=== PATIENT | male | born 1950 | race Caucasian/White ===

== ENCOUNTER → 2020-01-08 09:55 | Outpatient (CLI) | payer MEDICARE, BC ==
[2015-05-19 12:01] VITALS: BMI 24.1
[~2020-01-08 09:55] MED LIST: MIRALAX17 GM PO; NORCO 10/325 TA1 TA1 PO; TOBREX3.5 GM LEFT EYE
== END | disposition home or self-care (01) ==
LOC: D.LAB 09:55
PROVIDERS: ATTEND Urology
DX: N40.0 Benign prostatic hyperplasia without lower urinary tract symptoms (principal)